=== PATIENT | male | born 1965 | race Caucasian/White ===

== ENCOUNTER → 2018-04-29 | Outpatient (CLI) | payer OTHER | LOC: CIMAGING 07:25 | PROVIDERS: ATTEND Family Medicine | DX: K80.20 Calculus of gallbladder without cholecystitis without obstruction (principal); K76.0 Fatty (change of) liver, not elsewhere classified | CPT/HCPCS: 76705-PO ==

== ENCOUNTER 2018-11-22 05:47 | Day surgery (SDC) | payer BC, OTHER ==
[2018-11-22] MEDS ORDERED: ceFAZolin 2 GM/DEXTROSE 100 ML IV ONE (05:57)
[2018-11-22] MEDS ORDERED: LR 1,000 ML IV ONE (05:58)
--- NOTE | 2018-11-22 06:53 | PDHPUP ---
History & Physical Update H&P update statement: This history and physical update is based on an assessment of the patient which was completed after admission or registration (within 24 hours), but prior to the surgery/procedure. updated/reviewed H&P update: H&P reviewed & patient examined, no change in patient's condition since H&P completed H&P changes: no changes
[2018-11-22] MEDS ORDERED: BUPIVACAINE 0.5% 30 ML SDV ONE (06:54)
[2018-11-22] MEDS ORDERED: DEXAMETHASONE 4 MG/ML VIAL IVP PRN (07:04)
[2018-11-22] MEDS ORDERED: oxyCODONE IR 5 MG TAB PO PRN (07:04)
[2018-11-22] MEDS ORDERED: ONDANSETRON 4 MG/2 ML VIAL IVP PRN (07:04)
[2018-11-22] MEDS ORDERED: ALBUTEROL 3 ML DEYVIAL IH PRN (07:04)
[2018-11-22] MEDS ORDERED: fentaNYL 100 MCG/2 ML INJ IVP PRN (07:04)
[2018-11-22] MEDS ORDERED: NALOXONE HCL 0.4 MG/ML INJ IVP PRN (07:04)
[2018-11-22] MEDS ORDERED: HYDROmorphONE/DILAUDID 2 MG/ML INJ IVP PRN (07:04)
[2018-11-22] MEDS ORDERED: ACETAMINOPHEN 500 MG TAB PO PRN (07:04)
[2018-11-22] MEDS ORDERED: MIDAZOLAM 2 MG/2 ML VIAL IVP ONE (07:04)
[2018-11-22] MEDS ORDERED: NS 500 ML IV PRN (07:04)
--- NOTE | 2018-11-22 07:05 | PDANEPAE ---
ANE History of Present Illness R Inguinal Hernia ANE Past Medical History - Cardiovascular History Hx Hypertension: No Hx Arrhythmias: No Hx Chest Pain: No Hx Coronary Artery / Peripheral Vascular Disease: No Hx CHF / Valvular Disease: No Hx Palpitations: No - Pulmonary History Hx COPD: No Hx Asthma/Reactive Airway Disease: No Hx Recent Upper Respiratory Infection: No Hx Oxygen in Use at Home: No Hx Sleep Apnea: No Sleep Apnea Screening Result - Last Documented: Negative - Neurologic History Hx Cerebrovascular Accident: No Hx Seizures: No Hx Dementia: No Neurologic History Comment: sciatic pain for the last 7 weeks and still having nerve pain down right leg - Endocrine History Hx Diabetes: No - Renal History Hx Renal Disorders: No - Liver History Hx Hepatic Disorders: No - Neurological & Psychiatric Hx Hx Neurological and Psychiatric Disorders: No - Cancer History Hx Cancer: No - Congenital Disorder History Hx Congenital Disorders: No - GI History Hx Gastrointestinal Disorders: No - Other Health History Other Health History: glasses/ contacts. gout - Chronic Pain History Chronic Pain: Yes (sciatic pain for last 7 weeks) - Surgical History Prior Surgeries: salivary gland removed 2003. left broken collar bone with repair 2016 with metal plate. eleonora 05/2018 with Dominic ROSE Review of Systems Review of Systems: - Exercise capacity METS (RN): 4 METS ANE Patient History - Allergies Allergies/Adverse Reactions: Penicillins Allergy (Verified 11/21/18 17:43) Rash tree nut [Nuts] Allergy (Verified 11/21/18 17:43) Hives - Home Medications Home Medications: Allopurinol [Allopurinol 300 MG (RX)] 11/25/12 [Last Taken Unknown] Simvastatin [Zocor 20 mg] 11/25/12 [Last Taken Unknown] Herbals/Supplements -Info Only 11/21/18 [Last Taken 11/21/18] - NPO status NPO Since - Liquids (Date): 11/22/18 NPO Since - Liquids (Time): 00:01 NPO Since - Solids (Date): 11/21/18 NPO Since - Solids (Time): 19:00 - Smoking Hx Smoking Status: Never smoked - Family Anes Hx Family Hx Anesthesia Complications: none ANE Labs/Vital Signs - Vital Signs Blood Pressure: 126/85 Heart Rate: 63 Respiratory Rate: 20 O2 Sat (%): 100 Height: 177.8 cm Weight: 71.668 kg ANE Physical Exam - Airway Neck exam: FROM Mallampati Score: Class 2 Mouth exam: normal dental/mouth exam - Pulmonary Pulmonary: clear to auscultation - Cardiovascular Cardiovascular: regular rate and rhythym - ASA Status ASA Status: II ANE Anesthesia Plan Anesthesia Plan: general endotracheal anesthesia
[2018-11-22] MEDS ORDERED: MIDAZOLAM 2 MG/2 ML VIAL ONE (07:07)
[2018-11-22] MEDS ORDERED: ROCURONIUM 50 MG/5 ML VIAL ONE (07:11)
[2018-11-22] MEDS ORDERED: PROPOFOL 200 MG/20 ML VIAL ONE (07:11)
[2018-11-22] MEDS ORDERED: fentaNYL 100 MCG/2 ML INJ ONE ×3 (07:11→08:20)
[2018-11-22] MEDS ORDERED: ONDANSETRON 4 MG/2 ML VIAL ONE (07:12)
[2018-11-22] MEDS ORDERED: DEXAMETHASONE 4 MG/ML VIAL ONE (07:12)
[2018-11-22] MEDS ORDERED: LIDOCAINE 2% 100 MG/5 ML SYR ONE (07:14)
--- NOTE | 2018-11-22 08:17 | POSTANESTH ---
Post Anesthetic Evaluation Cardiovascular Status: Normal, Stable Respiratory Status: Normal, Stable Level of Consciousness/Mental Status: Can Participate in Eval, Mildly Sleepy, Arousable Pain Control: Adequate, Prn Tx Ordered Nausea/Vomiting Control: Adequate, Prn Tx Ordered Complications Possibly Related to Anesthesia: None Noted
[2018-11-22] MEDS ORDERED: oxyCODONE IR 5 MG TAB ONE (08:45)
--- NOTE | 2018-11-22 09:55 | POSTOPPROG ---
Post Op Note Date of Operation: 11/22/18 Surgeon: Martin Alfaro [place] Polisher: Rod Tomas Anesthesiologist: Dr Garcia Anesthesia: GET(General Endotracheal) Pre-op Diagnosis: B/L ing hernias Post-op Diagnosis: same Indication: pain Procedure: B/L lap ing hernia repair with mesh Findings: B/L hernia Inf/Abcess present in the surg proc area at time of surgery?: No Depth: Organ Space EBL: Minimal
[2018-11-22 10:55] VITALS: BP 128/80
== END 2018-11-22 10:40 | disposition home or self-care (01) ==
LOC: FSGY 05:47
PROVIDERS: ATTEND Surgery
PROC: 0YUA4JZ Supplement Bilateral Inguinal Region with Synthetic Substitute, Percutaneous Endoscopic Approach (ICD-10-PCS; principal; 2018-11-22 07:15)
DX: K40.20 Bilateral inguinal hernia, without obstruction or gangrene, not specified as recurrent (principal); R94.31 Abnormal electrocardiogram [ECG] [EKG]; M10.9 Gout, unspecified; E78.5 Hyperlipidemia, unspecified; I34.0 Nonrheumatic mitral (valve) insufficiency; Z82.49 Family history of ischemic heart disease and other diseases of the circulatory system; Z80.0 Family history of malignant neoplasm of digestive organs; Z80.42 Family history of malignant neoplasm of prostate; Z88.0 Allergy status to penicillin
CPT/HCPCS: C1727; C1781; J0690; J1100; J2001; J2250; J2405; J2704; J3010